=== PATIENT | male | born 1945 | race Caucasian/White ===

== ENCOUNTER → 2018-12-28 | Outpatient (CLI) | payer MEDICARE ==
--- NOTE | 2018-12-28 16:42 | XR ---
EXAMINATION TYPE: XR Hip Bilateral Complete DATE OF EXAM: 12/28/2018 COMPARISON: NONE HISTORY: 73-year-old male M25.551, complaining of bilateral hip pain TECHNIQUE: 2 views each side FINDINGS: On the right, there is end-stage loss of cartilage and joint space along the superolateral weightbear ing aspect with bone on bone articulation, subchondral sclerosis, and marginal spurring. Only mild marginal spurring seen on the left. No acute fracture, subluxation, or dislocation. Some oneill rgical clips in the pelvis. IMPRESSION: 1. End stage right hip OA. 2. Only mild degenerative spurring at the left hip.
== END | disposition home or self-care (01) ==
LOC: RADXRMAIN 15:09
PROVIDERS: ATTEND Internal Medicine Geriatric Medicine
DX: M16.0 Bilateral primary osteoarthritis of hip (principal)
CPT/HCPCS: 73521

== ENCOUNTER → 2019-01-11 | Outpatient (CLI) | payer MEDICARE ==
[2019-01-11 11:00] LABS: Basophils % (A) 0 %; Eosinophils # (A) 0.1 k/uL (0-0.7); Eosinophils % (A) 2 %; HCT 46.3 % (39.0-53.0); HGB 15.1 gm/dL (13.0-17.5); Lymphocytes # (A) 1.7 k/uL (1.0-4.8); Lymphocytes % (A) 30 %; MCH 29.7 pg (25.0-35.0); MCHC 32.6 g/dL (31.0-37.0); Mean Platelet Volume 7.1; Monocytes # (A) 0.4 k/uL (0-1.0); Monocytes % (A) 8 %; Neutrophils # (A) 3.3 k/uL (1.3-7.7); Neutrophils % (A) 58 %; Platelet Count 321 k/uL (150-450); RBC 5.09 m/uL (4.30-5.90); RDW 15.2 % (11.5-15.5); WBC 5.7 k/uL (3.8-10.6)
[2019-01-11 12:48] LABS: Appearance,Urine Clear (Clear); Bilirubin,Urine Negative (Negative); Blood,Urine Negative (Negative); Color,Urine Yellow; Glucose,Urine (UA) Negative (Negative); Ketones,Urine Negative (Negative); Leukocyte Esterase,Urine Negative (Negative); Nitrite,Urine Negative (Negative); PH, Urine 7.5 (5.0-8.0); Protein,Urine Negative (Negative); Specific Gravity,Urine 1.017 (1.001-1.035); Urobilinogen,Urine <2.0 mg/dL (<2.0)
[2019-01-11 13:52] LABS: Erythrocyte Sedimentation Rate 6 mm/hr (0-15)
[2019-01-11 17:23] LABS: C Reactive Protein <0.4 mg/dL (0.0-0.8); Thyroid Peroxidase Antibodies <28.0 U/mL (0.0-60.0)
== END | disposition home or self-care (01) ==
LOC: LABWHC1 09:47
PROVIDERS: ATTEND Allergy & Immunology
DX: K59.09 Other constipation (principal); L50.1 Idiopathic urticaria
CPT/HCPCS: 36415; 81003; 84443; 85025; 85652; 86140; 86376; 86800; 88184; 88185

== ENCOUNTER → 2019-01-12 | Outpatient (CLI) | payer MEDICARE | END | disposition home or self-care (01) | LOC: LABWHC1 14:11 | PROVIDERS: ATTEND Allergy & Immunology | DX: L50.8 Other urticaria (principal) | CPT/HCPCS: 36415; 86160; 86162 ==

== ENCOUNTER → 2020-02-03 | Outpatient (CLI) | payer MEDICARE ==
--- NOTE | 2020-02-03 22:11 | SFUN ---
SLEEP CENTER FOLLOW UP NOTE DATE OF SERVICE: 02/03/2020 This patient is a 74-year-old gentleman who has been followed in Sleep Center for treatment of obstructive sleep apnea-hypopnea syndrome. Patient successfully continues to use CPAP equipment every night, according to him. He sleeps well with the machine. [place] Sleepiness Scale today is 8. I checked his CPAP unit. Range of the pressure is 5 to 13. Average pressure is 10 cm of water. Usage, 30/30 nights and 25/30 nights for more than 4 hours with average usage 5.6 hours per night. Leak is 34 L/minute, which is slightly high. Apnea-hypopnea index is 6.1 with central apnea-hypopnea index 2.9. The patient is using a nasal Mirage FX mask. MEDICATIONS: Benadryl, montelukast, , Centrum Silver, multivitamins, calcium, Nature Made 600 mg in the morning. PHYSICAL EXAMINATION: GENERAL: A pleasant patient in no distress. VITAL SIGNS: BP 97/60, HR 78, RR 15, height 5 feet 6 inches, weight 174, BMI 27.9, temperature 98.3, oxygen saturation at room air 98%. HEENT: PERRLA, EOMI. Evaluation of oropharynx showed tongue protrudes midline. Low position of soft palate. NECK: Supple. No JVD. Thyroid is not palpable. LUNGS: Clear to percussion and to auscultation. Good air exchange. No wheezing or rhonchi. HEART: S1, S2 regular. No murmurs, gallops or rubs. ABDOMEN: Soft and nontender. Bowel sounds are present. No organomegaly. EXTREMITIES: No clubbing or cyanosis. PRINCIPAL TECHNICAL WRITER: Awake, alert, and oriented X3. Cranial nerves 2 to 7 intact. There is no fasciculation or atrophy. noted. No focal deficits observed. IMPRESSION: 1. Obstructive sleep apnea-hypopnea syndrome. Patient demonstrated good compliance with treatment, benefitting from treatment. 2. History of colon carcinoma, status post surgical treatment, radiation therapy and chemotherapy. 3. History of right knee arthritis. 4. History of right hip arthritis. 5. History of beginning of macular degeneration. PLAN: 1. Patient will continue to use PAP equipment every night for the whole night. 2. Sleep hygiene with regular time in bed for at least 7-1/2 to 8 hours. 3. Precautions related to driving. No driving if feeling sleepiness. 4. I will maintain all necessary prescription for PAP supplies including mask, tube, filters. 5. Watching weight. 6. No driving if feeling sleepiness. 7. Follow-up visit in 6 months or earlier if patient has any problems. Thank you very much for allowing me to participate in the management of your patient. Sincerely, Sang Gore MD, PhD, FAASM Diplomat of [place] Board [employer] Specialties [place] Board of Internal Medicine Real Estate Sales Associate of [facility] [place] MMODL / JACEN: [id number] /
== END | disposition home or self-care (01) ==
LOC: SLEEP 14:55
PROVIDERS: ATTEND Internal Medicine
DX: G47.33 Obstructive sleep apnea (adult) (pediatric) (principal); Z99.89 Dependence on other enabling machines and devices; Z85.030 Personal history of malignant carcinoid tumor of large intestine; Z92.3 Personal history of irradiation; Z92.21 Personal history of antineoplastic chemotherapy; Z87.39 Personal history of other diseases of the musculoskeletal system and connective tissue; Z79.899 Other long term (current) drug therapy

== ENCOUNTER → 2020-08-10 | Outpatient (CLI) | payer MEDICARE ==
--- NOTE | 2020-08-10 16:32 | SFUN ---
SLEEP CENTER FOLLOW UP NOTE DATE OF SERVICE: 08/10/2020 This is 75-year-old gentleman who has been followed in the sleep center for treatment of obstructive sleep apnea-hypopnea syndrome. The patient continues to use CPAP equipment every night for the whole night. No significant problems related to mask fitting, pressure or humidification. [place] Sleepiness Scale is 6, which is normal. I checked his CPAP unit. It is in automatic regimen with range of the pressure 5 to 13, average pressure 10.7. Usage is every night and /30 nights for more than 4 hours with average usage 5.7 hours per night. Leak is 30 L/minute, which is slightly high. Apnea- hypopnea index is borderline at 5.8, which includes central apnea-hypopnea index 2.9. MEDICATIONS: Montelukast, FiberCon, Xyzal, vitamins. PHYSICAL EXAMINATION: GENERAL: A pleasant patient in no distress. VITAL SIGNS: BP 101/60, HR 79, RR 12, height 5 feet 6-1/2 inches, weight 177.4, BMI 28.1, temperature 97.5, oxygen saturation at room air 98%. HEENT: PERRLA, EOMI. Evaluation of oropharynx showed tongue protrudes midline. NECK: Supple. No JVD. Thyroid is not palpable. LUNGS: Clear to percussion and to auscultation. Good air exchange. No wheezing or rhonchi. HEART: S1, S2 regular. No murmurs, gallops or rubs. ABDOMEN: Soft and nontender. Bowel sounds are present. No organomegaly appreciated. EXTREMITIES: No clubbing or cyanosis. CONTENT CREATION MANAGER: Awake, alert, and oriented X3. Cranial nerves 2 to 7 intact. There is no fasciculation or atrophy. noted. No focal deficits observed. IMPRESSION: 1. Obstructive sleep apnea-hypopnea syndrome. Patient demonstrated close to 100% compliance with treatment, benefitting from treatment. 2. History of colon carcinoma, status post surgical treatment, radiation therapy and chemotherapy. 3. History of right knee arthritis. 4. History of right hip arthritis. 5. History of macular degeneration. PLAN: 1. I believe you could continue to use PAP equipment with the same regimen. Patient developed a few central apneas, but the amount of central apneas is very minimal; 2.9 times per hour. 2. Patient will continue to use PAP equipment every night for the whole night. 3. Sleep hygiene with regular time in bed for at least 7-1/2 to 8 hours. 4. Precautions related to driving. No driving if feeling sleepiness. 5. I will maintain all necessary prescription for PAP supplies including mask, tube, filters. 6. Watching weight. 7. Follow-up visit in 6 months or earlier if patient has any problems. Thank you very much for allowing me to participate in the management of your patient. Sincerely, Sang Gore MD, PhD, FAASM Diplomat of [place] [employer] of [employer] Specialties [place] Board of Internal Medicine Control Analyst of [facility] [place] MMODL / IJN: [id number] /
== END ==
LOC: SLEEP 13:14
PROVIDERS: ATTEND Internal Medicine
DX: G47.33 Obstructive sleep apnea (adult) (pediatric) (principal); M17.11 Unilateral primary osteoarthritis, right knee; M16.11 Unilateral primary osteoarthritis, right hip; Z85.038 Personal history of other malignant neoplasm of large intestine; Z86.69 Personal history of other diseases of the nervous system and sense organs; Z79.899 Other long term (current) drug therapy

== ENCOUNTER → 2021-03-22 | Outpatient (CLI) | payer MEDICARE ==
--- NOTE | 2021-03-22 17:34 | SFUN ---
SLEEP CENTER FOLLOW UP NOTE DATE OF SERVICE: 03/22/2021 This 75-year-old gentleman has been followed in Sleep Center for treatment of obstructive sleep apnea-hypopnea syndrome. The patient continues to use his equipment every night and sleeps well. No complaints about sleep. No snoring. [place] Sleepiness Scale today is 8, which is normal. I checked his CPAP unit. Range of the pressure is 5 to 13, average pressure 9.9. Usage is 30/30 nights and 27/30 nights for more than 4 hours. Leak is slightly high at 36 L/minute. Apnea-hypopnea index is slightly increased at 5.5. The patient is using an AirFit P10 nasal pillow mask. He has slight irritation from the pillows on the nose. MEDICATIONS: 1. Montelukast. 2. Xyzal. 3. Benadryl. 4. Polyvitamins. 5. Calcium supplement. 6. Fiber therapy. PHYSICAL EXAMINATION: GENERAL: Pleasant patient in no distress. VITAL SIGNS: BP 104/68, HR 78, RR 15, height 5 feet 6 inches, weight 174, body mass index 28, temperature 98.3, oxygen saturation at room air 98%. HEENT: PERRLA, EOMI, evaluation of oropharynx showed tongue protrudes midline. NECK: Supple, no JVD. Thyroid is not palpable. LUNGS: Clear to percussion and to auscultation. Good air exchange. No wheezing or rhonchi. HEART: S1, S2 regular. No murmurs, gallops, or rubs. ABDOMEN: Soft and nontender. EXTREMITIES: No clubbing or cyanosis. STUD MASTER/MISTRESS: Awake, alert, and oriented X3. Cranial nerves 2 to 7 intact. There is no fasciculation or atrophy. noted. No focal deficits observed. IMPRESSION: 1. Obstructive sleep apnea-hypopnea syndrome. Patient demonstrated good compliance with treatment, benefitting from treatment. Some discomfort related to nasal pillow mask. The patient is using AirFit P10 pillows. Leak slightly increased. 2. History of colon carcinoma, status post surgical treatment, radiation therapy and chemotherapy. 3. History of right hip arthritis. 4. History of right knee arthritis. 5. History of macular degeneration. PLAN: 1. I increased regimen of pressure in his machine from 5-13 to 5-14 cm of water. 2. Patient may use AYR gel to the nostrils. 3. The patient may try a different size of nasal pillows. 4. Patient will continue to use PAP equipment every night for the whole night. 5. Sleep hygiene with regular time in bed for at least 7-1/2 to 8 hours. 6. Precautions related to driving. No driving if feeling sleepiness. 7. I will maintain all necessary prescription for PAP supplies including mask, tube, filters. 8. Watching weight. 9. Follow-up visit in 6 months or earlier if patient has any problems. Thank you very much for allowing me to participate in the management of your patient. Sincerely, Sang Gore MD, PhD, FAASM Diplomat of [place] Board of Medical Specialties Sleep Medicine Board of [place] Board of Internal Medicine Housekeeping Department Worker of [facility] [place] MMJO-ANN / JACEN: [id number] /
== END | disposition home or self-care (01) ==
LOC: SLEEP 09:55
PROVIDERS: ATTEND Internal Medicine
DX: G47.33 Obstructive sleep apnea (adult) (pediatric) (principal); Z85.038 Personal history of other malignant neoplasm of large intestine; C80.1 Malignant (primary) neoplasm, unspecified; Z92.3 Personal history of irradiation; Z92.21 Personal history of antineoplastic chemotherapy

== ENCOUNTER → 2021-09-19 | Outpatient (CLI) | payer MEDICARE ==
--- NOTE | 2021-09-19 12:41 | SFUN ---
SLEEP CENTER FOLLOW UP NOTE DATE OF SERVICE: 09/19/2021 This 76-year-old gentleman has been followed in Sleep Center for treatment of obstructive sleep apnea-hypopnea syndrome. The patient sleeps well, continues to use his CPAP equipment every night. During the previous visit, apnea-hypopnea index was slightly increased to 5.5. I slightly increased the pressure in his machine from the range of 5 to 13 up to 5 to 14. At present he said that he likes his nasal pillow mask. No problems with the equipment; getting his supplies on time. I checked his CPAP unit. Range of the pressure is 5 to 14, average pressure 10.6. Usage is 30/30 nights and usage 24/30 nights for more than 4 hours; average usage 5.1 hours. Leak is slightly increased to 30 L/minute. Apnea-hypopnea index is slightly increased to 7.2, which includes central apnea-hypopnea index of 4.4. [place] Sleepiness Scale today is 5, which is normal. MEDICATIONS: 1. Xyzal 5 mg 3 tablets every 2 days. 2. Montelukast 10 mg once a day. 3. Polyvitamin supplements. 4. Calcium supplement. PHYSICAL EXAMINATION: GENERAL: Pleasant patient in no distress. VITAL SIGNS: BP 115/68, HR 80, RR 14, weight 177.1 pounds, height 5 feet 6 inches, temperature 97.0, oxygen saturation at room air 97%. HEENT: PERRLA, EOMI, evaluation of oropharynx showed tongue protrudes midline. NECK: Supple, no JVD. Thyroid is not palpable. LUNGS: Clear to percussion and to auscultation. Good air exchange. No wheezing or rhonchi. HEART: S1, S2 regular. No murmurs, gallops, or rubs. ABDOMEN: Soft and nontender. Bowel sounds are present. No organomegaly appreciated. EXTREMITIES: No clubbing or cyanosis. STAMPING DIE MAKER BENCH: Awake, alert, and oriented X3. Cranial nerves 2 to 7 intact. There is no fasciculation or atrophy. noted. No focal deficits observed. IMPRESSION: 1. Obstructive and central sleep apnea-hypopnea syndrome. Patient demonstrated great compliance with treatment, benefitting from treatment. He sleeps well. Apnea- hypopnea index slightly increased to 7.2, including central events of 4.4 times per hour. 2. History of colon carcinoma, status post surgical, radiation and chemotherapy treatment. 3. History of right hip arthritis. 4. History of right knee arthritis. 5. History of macular degeneration. PLAN: 1. The patient sleeps well. For now we will continue to use the same therapy. If in the future any problems arise related to central apneas, we may consider BiPAP titration with ST mode. 2. Sleep hygiene with regular time in bed for at least 7-1/2 to 8 hours. 3. Precautions related to driving. No driving if feeling sleepiness. 4. I will maintain all necessary prescription for PAP supplies including mask, tube, filters. 5. Watching weight. 6. Follow-up visit in 6 months or earlier if patient has any problems. Thank you very much for allowing me to participate in the management of your patient. Sincerely, Sang Gore MD, PhD, FAASM Diplomat of [place] Board of Medical Specialties Sleep Medicine Board of [place] Board of Internal Medicine Operations Associate of [facility] [place] MMODL / IJN: [id number] /
== END | disposition home or self-care (01) ==
LOC: SLEEP 10:04
PROVIDERS: ATTEND Internal Medicine
DX: G47.33 Obstructive sleep apnea (adult) (pediatric) (principal); Z85.038 Personal history of other malignant neoplasm of large intestine; Z96.641 Presence of right artificial hip joint; Z86.69 Personal history of other diseases of the nervous system and sense organs

== ENCOUNTER → 2022-04-10 | Outpatient (CLI) | payer MEDICARE ==
--- NOTE | 2022-04-10 10:58 | P.PN ---
Subjective DATE: 04/10/2022 FOLLOW UP VISIT. Patient with obstructive sleep apnea hypopnea syndrome return to sleep center for follow-up visit. Information from previous visit have been reviewed. Patient is using PAP equipment every night for the whole night, getting PAP supplies in time. The patient does not have significant problems with the mask, PAP unit and humidification. [place] sleepiness scale is 6, which is normal. I checked PAP unit. Condition of air filter is good. PAP unit pressure 5-14, average 10.7 cm H2O. Usage is more then 90 % for more then 4 hours, average 5.6 hours per night. Leak is 28 l/m, which is in acceptable range. Apnea Hypopnea Index is 4.2, which is normal and showed improvement compared with the previous visit on total apnea hypopnea index was 7.2 included central apnea-hypopnea index 4.4. MEDICATIONS:1. Centrum Silver vitamins 2., Calcium supplement During physical exam: GENERAL: A pleasant patient without any distress. VITAL SIGNS: BP 113/73, HR 70, RR 16, weight 176, temperature 98.0, height 5 foot and 5-1/2 inches, body mass index 28.8, oxygen saturation at room air 97 % . HEENT: PERRLA, EOMI.low position of soft palate. NECK: Supple. No JVD. LUNGS: Clear to percussion and to auscultation. Good air exchange. No wheezing or rhonchi. HEART: S1, S2 regular. ABDOMEN: Soft and nontender.[] EXTREMITIES: No clubbing or cyanosis. REGIONAL CONSTRUCTION MANAGER: Awake, alert, and oriented x3. No focal deficit. Impressions: 1. Obstructive sleep apnea-hypopnea syndrome. Patient demonstrated great compliance with treatment, benefiting from treatment. Apnea-hypopnea index improved comparing to the previous visit down to normal 4.2 per hour, that i ncluded central apnea-hypopnea index 1.9. 2. History of colon carcinoma status post surgical treatment, radiation therapy and chemotherapy. 3. History of right hip arthritis. 4. History of right knee arthritis. 5. History of macular degeneration. Plan: 1. Continue using PAP equipment every night for the whole night. 2. To change air filter at least 1-2 times per month. 3. PAP unit should stay lower then position of the head. 4. Advised patient to remove all remaining water from humidifier canister daily and make it dry after each usage. Refill canister with fresh distilled water before each usage. 5. Sleep hygiene with regular time in bed for at least 8 hours. 6. Precautions related to driving. No driving if feel any sleepiness. 7. I will maintain prescription for PAP supplies including mask, tube, filters. 8. Follow up visit in 6 months or earlier if patient has any problems. 9. Watching weight. Thank you very much for allowing me to participate in the management of your patient. Sang Gore MD, PhD, FAASM. Diplomat of [place] Board of Sleep Medicine, Sleep Medicine Board by [place] Board of Internal Medicine License And Permit Specialist of [facility] [place]
== END | disposition home or self-care (01) ==
LOC: SLEEP 10:13
PROVIDERS: ATTEND Internal Medicine
DX: G47.33 Obstructive sleep apnea (adult) (pediatric) (principal); M16.11 Unilateral primary osteoarthritis, right hip; M17.11 Unilateral primary osteoarthritis, right knee; Z85.038 Personal history of other malignant neoplasm of large intestine; Z92.3 Personal history of irradiation
CPT/HCPCS: 99212

== ENCOUNTER → 2023-04-08 | Outpatient (CLI) | payer MEDICARE ==
--- NOTE | 2023-04-08 11:58 | BD ---
EXAMINATION TYPE: Axial Bone Density DATE OF EXAM: 04/08/2023 CLINICAL HISTORY: 77 years old Male. ICD-10 CODE: M81.0 AGE-RELATED OSTEOPOROSIS Height: 65.0 Weight: 168.2 FRAX RISK QUESTIONS: Alcohol (3 or more units per day): no Family History (Parent hip fracture): no Glucocorticoids (More than 3mos): no (Ex: prednisone, prednisolone, methylprednisolone, dexamethasone, and hydrocortisone). History of Fracture in Adulthood: no Secondary Osteoporosis: 1. Type 1 Diabetes: no 2. Hyperthyroidism: no 3. Menopause before 45: N/A 4. Malnutrition: no 5. Chronic liver disease: no Rheumatoid Arthritis: no Current Tobacco Use: no RISK FACTORS HISTORY OF: Surgery to Spine/Hip(right/left)/Wrist (right/left): right hip replaced When: 5 years ago Active: yes Diet low in dairy products/other sources of calcium: yes Lost more than 2 inches in height since high school: yes MEDICATIONS: Additional History: EXAM MEASUREMENTS: Bone mineral densitometry was performed using the [employer] System. Bone mineral density as measured about the Lumbar spine is: ----- L1-L4(G/cm2): 1.146 T Score Values are as follows: ----- L1: 1.2 ----- L2: -0.8 ----- L3: -0.7 ----- L4: -0.8 ----- L1-L4: -0.3 Z Score Values are as follows: ----- L1: 1.7 ----- L2: -0.4 ----- L3: -0.3 ----- L4: -0.5 ----- L1-L4: 0.1 Bone mineral density : baseline Bone mineral density about the L hip (g/cm2): 1.045 T Score values are as follows: -----L Neck-0.3 -----L Total: 0.3 Z Score values are as follows: -----L Neck: 0.9 -----L Total: 0.6 Bone mineral density : baseline FRAX%s: The graph provided illustrates a 5.4% chance for a major osteoporotic fx and a 1.2% chance fo r the hips probability for fx in 10 years time. IMPRESSION: Normal (Values between +1 and -1 indicate normal bone mass). Consider repeating this study in 5 year s or sooner if there is some new clinical indication. NOTE: T-SCORE=SD OF THE YOUNG ADULT MEAN.
== END | disposition home or self-care (01) ==
LOC: RADBDWWP 11:13
PROVIDERS: ATTEND Internal Medicine Geriatric Medicine
DX: M81.0 Age-related osteoporosis without current pathological fracture (principal)
CPT/HCPCS: 77080

== ENCOUNTER → 2023-04-16 | Outpatient (CLI) | payer MEDICARE ==
--- NOTE | 2023-04-16 12:24 | P.PN ---
Subjective DATE: 04/16/2023 FOLLOW UP VISIT. Patient with obstructive sleep apnea hypopnea syndrome return to sleep center for follow-up visit. Information from previous visit have been reviewed. Patient is using PAP equipment every night for the whole night, getting PAP supplies in time. The patient does not have significant problems with the mask, PAP unit and humidification. [place] sleepiness scale is 6, which is normal. I checked information from PAP unit. PAP unit pressure 5-14, average 10.7 cm H2O. Usage is 100 % for more then 4 hours, average 5.5 hours per night. Leak is 24 l/m, which is in acceptable range. Apnea Hypopnea Index is 5.0, which is normal. MEDICATIONS:1. Calcium supplement 2. Polyvitamin During physical exam: GENERAL: A pleasant patient without any distress. VITAL SIGNS: BP 111/67, HR 76, RR 16 , weight 171.8, temperature 98.3, oxygen saturation at room air 98 % . HEENT: PERRLA, EOMI.low position of soft palate, Mallapati 3 . NECK: Supple. No JVD. LUNGS: Clear to percussion and to auscultation. Good air exchange. No wheezing or rhonchi. HEART: S1, S2 regular. ABDOMEN: Soft and nontender.[] EXTREMITIES: No clubbing or cyanosis. ANIMAL CARE TAKER: Awake, alert, and oriented x3. No focal deficit. Impressions: 1. Obstructive sleep apnea-hypopnea syndrome. Patient demonstrated great compliance with treatment, benefiting from treatment. 2. History of colon cancer, status post surgical treatment, chemotherapy and radiation therapy. 3. History of right hip arthritis. 4. History of right knee arthritis. 5. History of myocardial degeneration. Plan: 1. Continue using PAP equipment every night for the whole night. 2. To change air filter at least 1-2 times per month. 3. PAP unit should stay lower then position of the head. 4. Advised patient to remove all remaining water from humidifier canister daily and make it dry after each usage. Refill canister with fresh distilled water before each usage. 5. Sleep hygiene with regular time in bed for at least 8 hours. 6. Precautions related to driving. No driving if feel any sleepiness. 7. I will maintain prescription for PAP supplies including mask, tube, filters. 8. Watching weight. 9. Follow up visit in 6 months or earlier if patient has any problems. Thank you very much for allowing me to participate in the management of your patient. Sang Gore MD, PhD, FAASM. Diplomat of [place] Board of Sleep Medicine, Sleep Medicine Board by [place] Board of Internal Medicine Structural Steel Worker Helper of [facility] [place]
== END ==
LOC: 3 N SLEEP 10:16
PROVIDERS: ATTEND Internal Medicine
DX: G47.33 Obstructive sleep apnea (adult) (pediatric) (principal); M16.11 Unilateral primary osteoarthritis, right hip; M17.11 Unilateral primary osteoarthritis, right knee; Z85.038 Personal history of other malignant neoplasm of large intestine; Z86.79 Personal history of other diseases of the circulatory system; Z99.89 Dependence on other enabling machines and devices; Z92.3 Personal history of irradiation
CPT/HCPCS: 99212

== ENCOUNTER → 2023-10-22 | Outpatient (CLI) | payer MEDICARE ==
--- NOTE | 2023-10-22 11:16 | P.PROGSL ---
Subjective DATE: 10/22/2023 FOLLOW UP VISIT. Patient with obstructive sleep apnea hypopnea syndrome return to sleep center for follow-up visit. Information from previous visit have been reviewed. Patient is using PAP equipment every night for the whole night, getting PAP supplies in time. PAP unit is noisy, more than 5-year-old . [place] sleepiness scale is 6, which is normal. I checked information from PAP unit. PAP unit pressure 5-14, average 11.1 cm H2O. Usage is 100% for more then 4 hours, average 4.9 hours per night. Leak is 22 l/m, which is in acceptable range. Apnea Hypopnea Index is 4.5, which is normal. MEDICATIONS: See below During physical exam: GENERAL: A pleasant patient without any distress. VITAL SIGNS: See below, weight 174 pounds, BMI 28.5. HEENT: PERRLA, EOMI.low position of soft palate, Mallapati 3 . NECK: Supple. No JVD. LUNGS: Clear to percussion and to auscultation. Good air exchange. No wheezing or rhonchi. HEART: S1, S2 regular. ABDOMEN: Soft and nontender.[] EXTREMITIES: No clubbing or cyanosis. BRIM POUNCER: Awake, alert, and oriented x3. No focal deficit. Impressions: 1. Obstructive sleep apnea-hypopnea syndrome. Patient demonstrated great compliance with treatment, benefiting from treatment. CPAP unit is old, noisy. 2. History of colon cancer. 3. History of right hip arthritis. 4. History of right knee arthritis. Plan: 1. Continue using PAP equipment every night for the whole night. Prescription to replace CPAP unit, because it is noisy and old. 2. To change air filter at least 1-2 times per month. 3. PAP unit should stay lower then position of the head. 4. Advised patient to remove all remaining water from humidifier canister daily and make it dry after each usage. Refill canister with fresh distilled water before each usage. 5. Sleep hygiene with regular time in bed for at least 8 hours. 6. Precautions related to driving. No driving if feel any sleepiness. 7. I will maintain prescription for PAP supplies including mask, tube, filters. 8. Follow up visit in 1-3 months after patient will get new CPAP unit or earlier if patient has any problems. 9. Watching weight. Thank you very much for allowing me to participate in the management of your patient. Sang Gore MD, PhD, FAASM. Diplomat of [place] Board of Sleep Medicine, Sleep Medicine Board by [place] Board of Internal Medicine Journeyman Millwright of [facility] [place] Objective - Vital Signs Vital Signs: Vital Signs Temp 98.2 F 10/22/23 10:58 Pulse 74 10/22/23 10:58 Resp 16 10/22/23 10:58 BP 118/73 10/22/23 10:58 Pulse Ox 97 10/22/23 10:58 FiO2 Intake & Output 10/21/23 10/22/23 10/22/23 18:59 06:59 18:59 Weight 78.925 kg Home Medications: Home Medications Medication Instructions Recorded Confirmed Type Calcium Carbonate/Vitamin D3 600 mg PO DAILY 10/22/23 10/22/23 History [Calcium 600 mg-Vit D3 10 mcg (400 Unit)] Citrull/Argin/Blaine Xt/Ora Hip 400 mg PO DAILY MDD 1000 10/22/23 10/22/23 History [Ristela Tablet] Multivit-Mins/Iron/Folic/Lycop See Rx Instructions .ROUTE .COMPLEX 10/22/23 10/22/23 History [Centrum Men's Tablet] Vit C/E/Zn/Coppr/Lutein/Zeaxan See Rx Instructions .ROUTE .COMPLEX 10/22/23 10/22/23 History [Preservision Areds 2 Chew Tab]
[2023-10-22 11:37] VITALS: BP 118/73; PULSE 74; RESP 16; TEMP 98.2
== END ==
LOC: 3 N SLEEP 10:37
PROVIDERS: ATTEND Internal Medicine
DX: G47.33 Obstructive sleep apnea (adult) (pediatric) (principal); Z85.038 Personal history of other malignant neoplasm of large intestine; Z87.39 Personal history of other diseases of the musculoskeletal system and connective tissue; Z99.89 Dependence on other enabling machines and devices
CPT/HCPCS: 99212

== ENCOUNTER → 2024-03-03 | Outpatient (CLI) | payer MEDICARE ==
[2024-03-03 16:19] VITALS: BP 110/71; PULSE 78; RESP 16; TEMP 98.1
--- NOTE | 2024-03-03 16:51 | P.PROGSL ---
Subjective DATE: 03/03/2024 FOLLOW UP VISIT. Patient with obstructive sleep apnea hypopnea syndrome return to sleep center for follow-up visit. Information from previous visit have been reviewed. This is first visit with new CPAP unit. Patient is using PAP equipment every night but sometimes not for the whole night, getting PAP supplies in time. The patient does not have significant problems with the mask, PAP unit and humidification. [place] sleepiness scale is 5, which is normal. I checked information from PAP unit. PAP unit pressure 5-15, average 8.6 cm H2O. Usage is 100% and about 60% for more then 4 hours, average 4.5 hours per night. Leak is 4.5 l/m, which is in acceptable range. Apnea Hypopnea Index is increased to 8.8 over the last months and to 6.7 for the last 3 months, which includes 6.1 centrals and 2.0 obstructive. MEDICATIONS have been reviewed, please see below. During physical exam: GENERAL: A pleasant patient without any distress. VITAL SIGNS: Please see below, weight is 175.4 lbs. HEENT: PERRLA, EOMI.low position of soft palate, Mallapati 3 . NECK: Supple. No JVD. LUNGS: Clear to percussion and to auscultation. Good air exchange. No wheezing or rhonchi. HEART: S1, S2 regular. ABDOMEN: Soft and nontender.[] EXTREMITIES: No clubbing or cyanosis. EARLY LEARNING TEACHER: Awake, alert, and oriented x3. No focal deficit. Impressions: 1. Complex sleep apnea-hypopnea syndrome. Patient demonstrated good compliance with treatment, benefiting from treatment. Apnea-hypopnea index slightly increased comparing with the previous visit mostly secondary to central apneas. 2. History of colon cancer. 3. History of right hip arthritis. 4. History of right knee arthritis. I changed regimen of CPAP unit to CPAP pressure 11 cm of water. Plan: 1. Continue using PAP equipment every night for the whole night. 2. Sleep hygiene with regular time in bed for at least 7.5-8 hours 3. PAP unit should stay lower then position of the head. 4. Advised patient to remove all remaining water from humidifier canister daily and make it dry after each usage. Refill canister with fresh distilled water before each usage. 5. Watching weight. 6. Precautions related to driving. No driving if feel any sleepiness. 7. I will maintain prescription for PAP supplies including mask, tube, filters. 8. Follow up visit in 2 months or earlier if patient has any problems. Thank you very much for allowing me to participate in the management of your patient. Sang Gore MD, PhD, FAASM. Diplomat of [place] [employer], Sleep Medicine Board by [employer] Derrick Boat Leverman of [facility] [place] Objective - Vital Signs Vital Signs: Vital Signs Temp 98.1 F 03/03/24 16:16 Pulse 78 03/03/24 16:16 Resp 16 03/03/24 16:16 BP 110/71 03/03/24 16:16 Pulse Ox 97 03/03/24 16:16 FiO2 Intake & Output 03/02/24 03/03/24 03/03/24 18:59 06:59 18:59 Weight 79.492 kg Home Medications: Home Medications Medication Instructions Recorded Confirmed Type Calcium Carbonate/Vitamin D3 600 mg PO DAILY 10/22/23 10/22/23 History [Calcium 600 mg-Vit D3 10 mcg (400 Unit)] Citrull/Argin/[place] Xt/Ora Hip 400 mg PO DAILY MDD 1000 10/22/23 10/22/23 History [Ristela Tablet] Multivit-Mins/Iron/Folic/Lycop See Rx Instructions .ROUTE .COMPLEX 10/22/23 10/22/23 History [Centrum Men's Tablet] Vit C/E/Zn/Coppr/Lutein/Zeaxan See Rx Instructions .ROUTE .COMPLEX 10/22/23 10/22/23 History [Preservision Areds 2 Chew Tab]
== END ==
LOC: 3 N SLEEP 15:19
PROVIDERS: ATTEND Internal Medicine
DX: G47.33 Obstructive sleep apnea (adult) (pediatric)
CPT/HCPCS: 99212

== ENCOUNTER → 2024-05-06 | Outpatient (CLI) | payer MEDICARE ==
[2024-05-06 10:58] VITALS: BP 120/73; PULSE 82; RESP 16; TEMP 97.8
--- NOTE | 2024-05-06 11:17 | P.PROGSL ---
Subjective DATE: 05/06/2024 FOLLOW UP VISIT. Patient with obstructive sleep apnea hypopnea syndrome return to sleep center for follow-up visit. Information from previous visit have been reviewed. Patient is using PAP equipment every night for the whole night, getting PAP supplies in time. The patient does not have significant problems with the mask, PAP unit and humidification. [place] sleepiness scale is 8, which is close to water. I checked information from PAP unit. PAP unit pressure 11 cm H2O. Usage is 100% for more then 4 hours, average 6 hours per night. Leak is 21.1 l/m, which is in acceptable range. Apnea Hypopnea Index is 7.0, which includes central apnea hypopnea index 4.9, obstructive 1.3 and showed improvements comparing with the previous visit when it was 8.8. At that time machine was not a traumatic regimen with a range of the pressure 5-15 and average pressure was 8.6 cm of water. MEDICATIONS have been reviewed, please see below. During physical exam: GENERAL: A pleasant patient without any distress. VITAL SIGNS: Please see below, weight is 179 lbs. HEENT: PERRLA, EOMI.low position of soft palate, Mallapati 3. NECK: Supple. No JVD. LUNGS: Clear to percussion and to auscultation. Good air exchange. No wheezing or rhonchi. HEART: S1, S2 regular. ABDOMEN: Soft and nontender.[] EXTREMITIES: No clubbing or cyanosis. NAPHTHALENE OPERATOR HELPER: Awake, alert, and oriented x3. No focal deficit. Impressions: 1. Complex sleep apnea-hypopnea syndrome. Patient demonstrated great compliance with treatment, benefiting from treatment. 2. History of colon cancer. 3. History of right hip arthritis. 4. History of right knee arthritis. I changed pressure of CPAP down to 10 cm of water. Plan: 1. Continue using PAP equipment every night for the whole night. 2. Sleep hygiene with regular time in bed for at least 7.5-8 hours 3. PAP unit should stay lower then position of the head. 4. Advised patient to remove all remaining water from humidifier canister daily and make it dry after each usage. Refill canister with fresh distilled water before each usage. 5. Watching weight. 6. Precautions related to driving. No driving if feel any sleepiness. 7. I will maintain prescription for PAP supplies including mask, tube, filters. 8. Follow up visit in 4 months or earlier if patient has any problems. Thank you very much for allowing me to participate in the management of your patient. Sang Gore MD, PhD, FAASM. Diplomat of [place] [employer], Sleep Medicine Board by [employer] Timber Supervisor of [facility] [place] Objective - Vital Signs Vital Signs: Vital Signs Temp 97.8 F 05/06/24 10:57 Pulse 82 05/06/24 10:57 Resp 16 05/06/24 10:57 BP 120/73 05/06/24 10:57 Pulse Ox 97 05/06/24 10:57 FiO2 Intake & Output 05/05/24 05/06/24 05/06/24 18:59 06:59 18:59 Weight 81.193 kg Home Medications: Home Medications Medication Instructions Recorded Confirmed Type Calcium Carbonate/Vitamin D3 600 mg PO DAILY 10/22/23 05/06/24 History [Calcium 600 mg-Vit D3 10 mcg (400 Unit)] Citrull/Argin/[place] Xt/Ora Hip 400 mg PO DAILY MDD 1000 10/22/23 05/06/24 History [Ristela Tablet] Multivit-Mins/Iron/Folic/Lycop See Rx Instructions .ROUTE .COMPLEX 10/22/23 05/06/24 History [Centrum Men's Tablet] Vit C/E/Zn/Coppr/Lutein/Zeaxan See Rx Instructions .ROUTE .COMPLEX 10/22/23 05/06/24 History [Preservision Areds 2 Chew Tab]
== END ==
LOC: 3 N SLEEP 10:31
PROVIDERS: ATTEND Internal Medicine
DX: G47.39 Other sleep apnea (principal); Z99.89 Dependence on other enabling machines and devices; Z87.39 Personal history of other diseases of the musculoskeletal system and connective tissue; Z85.038 Personal history of other malignant neoplasm of large intestine
CPT/HCPCS: 99212

== ENCOUNTER → 2024-08-19 | Day surgery (SDC) | payer MEDICARE ==
[2024-08-18 10:04] VITALS: BMI 28.2
[~2024-08-19] MED LIST: PROPOFOL 10 MG/ML 20 ML VIAL IV ONE
[2024-08-19 09:38] VITALS: RESP 16; TEMP 96.5
[2024-08-19] MEDS: LACTATED RINGERS 1,000 ML IV SCH (09:45)
--- NOTE | 2024-08-19 10:26 | P.PCN ---
Date of Procedure: 08/19/24 Preoperative Diagnosis: History of colon cancer Postoperative Diagnosis: Diverticulosis Patent anastomosis Procedure(s) Performed: Colonoscopy Anesthesia: MAC Surgeon: Brice Wisdom Pathology: none sent Condition: stable Disposition: same day Indications for Procedure: 79-year-old male with history of colon cancer and previous colon resection status post chemo and radiation presents today for colonoscopy. No blood in his stool. No difficulty with bowel function. Risks, benefits and alternatives were provided to the patient. All questions answered Operative Findings: Normal-appearing colon with diverticulosis, patent anastomosis from previous colon resection Description of Procedure: The patient was brought to the endoscopy suite and placed in left lateral decubitus position and adequate sedation was achieved using conscious sedation. Digital rectal exam was performed and mild internal hemorrhoids were palpated. An endoscope was then placed in the rectum and advanced to the cecum as identified by landmarks including the appendiceal orifice and the ileocecal valve. The prep was good. The colonoscope was then slowly withdrawn, examining for any mucosal abnormalities. The remaining colon was visualized adequately. Anastomosis was noted to be patent. No polyps noted. No neoplastic lesions noted. Mild amount of diverticulosis. Hemostasis was maintained. Retroflexion was performed in the rectum and internal hemorrhoid. Excess air was removed, the colonoscope withdrawn and the procedure terminated. The patient was then transferred to the recovery unit in stable condition. Repeat colonoscopy should be performed in 5 years unless symptomatic.
[2024-08-19 10:49] VITALS: BP 137/74; PULSE 71
== END | disposition home or self-care (01) ==
LOC: ORWHC2ENDO 08:57
PROVIDERS: ATTEND Surgery
DX: Z12.11 Encounter for screening for malignant neoplasm of colon (principal); K57.30 Diverticulosis of large intestine without perforation or abscess without bleeding; G47.33 Obstructive sleep apnea (adult) (pediatric); L40.9 Psoriasis, unspecified; Z85.038 Personal history of other malignant neoplasm of large intestine; Z90.49 Acquired absence of other specified parts of digestive tract; Z99.89 Dependence on other enabling machines and devices; Z79.899 Other long term (current) drug therapy; Z92.3 Personal history of irradiation; Z88.8 Allergy status to other drugs, medicaments and biological substances; Z98.0 Intestinal bypass and anastomosis status
CPT/HCPCS: J2704; G0105; 45378

== ENCOUNTER → 2024-09-15 | Outpatient (CLI) | payer MEDICARE ==
[2024-09-15 11:38] VITALS: BP 113/71; PULSE 74; RESP 16; TEMP 98.1
--- NOTE | 2024-09-15 12:09 | P.PROGSL ---
Subjective DATE: 09/15/2024 FOLLOW UP VISIT. Patient with obstructive sleep apnea hypopnea syndrome return to sleep center for follow-up visit. Information from previous visit have been reviewed. Patient is using PAP equipment every night for the whole night, getting PAP supplies in time. The patient does not have significant problems with the mask, PAP unit and humidification. [place] sleepiness scale is 6, which is normal. I checked information from PAP unit. PAP unit pressure 10 cm H2O. Usage is 100% for more then 4 hours, average 5.6 hours per night. Leak is 11 l/m, which is in acceptable range. Apnea Hypopnea Index is 8.0, which include 1.5 obstructive and 5.7 centrals. MEDICATIONS have been reviewed, please see below. During physical exam: GENERAL: A pleasant patient without any distress. VITAL SIGNS: Please see below, weight is 178.2 lbs. HEENT: PERRLA, EOMI.low position of soft palate, Mallapati 3. NECK: Supple. No JVD. LUNGS: Clear to percussion and to auscultation. Good air exchange. No wheezing or rhonchi. HEART: S1, S2 regular. ABDOMEN: Soft and nontender.[] EXTREMITIES: No clubbing or cyanosis. MOBILE DEVELOPMENT MANAGER: Awake, alert, and oriented x3. No focal deficit. Impressions: 1. Complex sleep apnea-hypopnea syndrome. Patient demonstrated great compliance with treatment, benefiting from treatment. Reading from the machine still showed some central apneas. 2. History of colon cancer. 3. History of right hip arthritis. 4. History of right knee arthritis. I changed pressure in CPAP unit down to 9 cm of water. Plan: 1. Continue using PAP equipment every night for the whole night. 2. Sleep hygiene with regular time in bed for at least 7.5-8 hours 3. PAP unit should stay lower then position of the head. 4. Advised patient to remove all remaining water from humidifier canister daily and make it dry after each usage. Refill canister with fresh distilled water before each usage. 5. Watching weight. 6. Precautions related to driving. No driving if feel any sleepiness. 7. I will maintain prescription for PAP supplies including mask, tube, filters. 8. Follow up visit in 3 months or earlier if patient has any problems. Thank you very much for allowing me to participate in the management of your patient. Sang Gore MD, PhD, FAASM. Diplomat of [place] [employer] Medicine, Sleep Medicine Board by [employer] Biomass Facilitator of [facility] [place] Objective - Vital Signs Vital Signs: Vital Signs Temp 98.1 F 09/15/24 11:36 Pulse 74 09/15/24 11:36 Resp 16 09/15/24 11:36 BP 113/71 09/15/24 11:36 Pulse Ox 96 09/15/24 11:36 FiO2 Intake & Output 09/14/24 09/15/24 09/15/24 18:59 06:59 18:59 Weight 80.796 kg Home Medications: Home Medications Medication Instructions Recorded Confirmed Type Calcium Carbonate/Vitamin D3 600 mg PO DAILY 10/22/23 08/19/24 History [Calcium 600 mg-Vit D3 10 mcg (400 Unit)] Vit C/E/Zn/Coppr/Lutein/Zeaxan 1 tab PO BID 10/22/23 08/19/24 History [Preservision Areds 2 Chew Tab] Calcium Carbonate [Calcium] 600 mg PO DAILY 08/18/24 08/19/24 History Citrucel Tab 2 tab PO DAILY 08/18/24 08/19/24 History Clobetasol Propionate [Temovate 1 applic TOPICAL BID 08/18/24 08/19/24 History 0.05% Cream] Ketoconazole [Ketoconazole 2%] 1 applic TOPICAL BID 08/18/24 08/19/24 History Multivit-Minerals/FA/Lycopene 1 each PO DAILY 08/18/24 08/19/24 History [One-A-Day Men's 50 Plus Tablet] Sodium Chloride 5% Ophth Oint 1 applic BOTH EYES BID 08/18/24 08/19/24 History [Christopher 128] Triamcinolone 0.025% Cream 1 applic TOPICAL BID 08/18/24 08/19/24 History [Kenalog 0.025% Cream] Triamcinolone Acetonide 1 applic TOPICAL BID 08/18/24 08/19/24 History [Triamcinolone Acetonide 0.1% Lotion]
== END ==
LOC: 3 N SLEEP 11:04
PROVIDERS: ATTEND Internal Medicine
DX: G47.33 Obstructive sleep apnea (adult) (pediatric) (principal); Z85.038 Personal history of other malignant neoplasm of large intestine; Z87.39 Personal history of other diseases of the musculoskeletal system and connective tissue; Z99.89 Dependence on other enabling machines and devices; Z91.048 Other nonmedicinal substance allergy status
CPT/HCPCS: 99212

== ENCOUNTER → 2024-11-05 | Outpatient (CLI) | payer MEDICARE ==
--- NOTE | 2024-11-07 22:45 | PE ---
EXAMINATION TYPE: PET CT fusion skull to thigh DATE OF EXAM: 11/05/2024 COMPARISON: NONE HISTORY: T-cell lymphoma per order. Colon cancer diagnosed in January 2020 completed chemotherapy October 2020 per patient. TECHNIQUE: Following the intravenous administration of 9.38 mCi of F-18 FDG, whole body images are p erformed from the top of skull to the bottom of the. Images are reviewed on the computer in the augusto nal, axial, and sagittal planes. Reconstructed rotating images are created on independent workstatio n and reviewed on the computer. A localization and attenuation correction CT is performed in conjun ction with the PET scan. Blood glucose level equals 100 SCAN: Subsequent Scan FINDINGS: Mean SUV mediastinum: 1.4 Mean SUV liver: 3.07 HEAD AND NECK: No areas of abnormal suspicious hypermetabolic uptake. CHEST, MEDIASTINUM, AND HILAR REGION: No areas of abnormal suspicious hypermetabolic uptake. ABDOMEN AND PELVIS: Normal excretion. No areas of suspicious abnormal uptake. Lower extremities: No areas of abnormal suspicious hypermetabolic uptake. OSSEOUS STRUCTURES: No areas of abnormal metabolic uptake OTHER CT: Bilateral aphakia. Mild calcified plaque bilateral carotid bulb level. Moderate coronary ca lcification. Debris filled slightly dilated esophagus raises concern for underlying achalasia, correl ate clinically. Simple appearing 4.7 cm thin-walled cyst upper pole right kidney does not clear follow-up. Surgical c marcia sigmoid colon in the pelvis is present. Metallic hardware from right hip arthroplasty causes str eak artifact limiting evaluation of pelvic structures. IMPRESSION: No suspicious hypermetabolic uptake to suggest active malignancy. [facility], , 11/07/2024 10:43 PM
== END | disposition home or self-care (01) ==
LOC: RADPETMAIN 14:00
PROVIDERS: ATTEND Internal Medicine Hematology & Oncology
DX: C84.A0 Cutaneous T-cell lymphoma, unspecified, unspecified site (principal); C84.08 Mycosis fungoides, lymph nodes of multiple sites
CPT/HCPCS: 78815; A9552

== ENCOUNTER → 2024-12-22 | Outpatient (CLI) | payer MEDICARE ==
[2024-12-22 11:52] VITALS: BP 130/79; PULSE 72; RESP 16; TEMP 97.8
--- NOTE | 2024-12-22 12:14 | P.PROGSL ---
Subjective DATE: 12/22/2024 FOLLOW UP VISIT. Patient with obstructive sleep apnea hypopnea syndrome return to sleep center for follow-up visit. Information from previous visit have been reviewed. Patient is using PAP equipment every night for the whole night, getting PAP supplies in time. The patient does not have significant problems with the mask, PAP unit and humidification. [place] sleepiness scale is slightly increased to 12. I checked information from PAP unit. PAP unit pressure 9 cm H2O. Usage is 100% for more then 4 hours, average 7.2 hours per night. Leak is 12 l/m, which is in acceptable range. Apnea Hypopnea Index is 6.9, which include 4.1 central events. MEDICATIONS have been reviewed, please see below. During physical exam: GENERAL: A pleasant patient without any distress. VITAL SIGNS: Please see below, weight is 175 lbs. HEENT: PERRLA, EOMI.low position of soft palate, Mallapati 3. NECK: Supple. No JVD. LUNGS: Clear to percussion and to auscultation. Good air exchange. No wheezing or rhonchi. HEART: S1, S2 regular. ABDOMEN: Soft and nontender.[] EXTREMITIES: No clubbing or cyanosis. SHOWROOM SALESPERSON: Awake, alert, and oriented x3. No focal deficit. Impressions: 1. Complex sleep apnea-hypopnea syndrome. Patient demonstrated great compliance with treatment, benefiting from treatment. 2. History of colon cancer. 3. History of right hip arthritis. 4. History of right knee arthritis. I changed the regimen of PAP unit to AutoPap with a range of the pressure 5 to 12 cm of water. Plan: 1. Continue using PAP equipment every night for the whole night. 2. Sleep hygiene with regular time in bed for at least 7.5-8 hours 3. PAP unit should stay lower then position of the head. 4. Advised patient to remove all remaining water from humidifier canister daily and make it dry after each usage. Refill canister with fresh distilled water before each usage. 5. Watching weight. 6. Precautions related to driving. No driving if feel any sleepiness. 7. I will maintain prescription for PAP supplies including mask, tube, filters. 8. Follow up visit in 6 months or earlier if patient has any problems. Thank you very much for allowing me to participate in the management of your patient. Sang Gore MD, PhD, FAASM. Diplomat of [place] [employer], Sleep Medicine Board by [place] Central Supply Technician Supervisor of [facility] [place] Objective - Vital Signs Vital Signs: Vital Signs Temp 97.8 F 12/22/24 11:51 Pulse 72 12/22/24 11:51 Resp 16 12/22/24 11:51 BP 130/79 12/22/24 11:51 Pulse Ox 98 12/22/24 11:51 FiO2 Home Medications: Home Medications Medication Instructions Recorded Confirmed Type Calcium Carbonate/Vitamin D3 600 mg PO DAILY 10/22/23 08/19/24 History [Calcium 600 mg-Vit D3 10 mcg (400 Unit)] Vit C/E/Zn/Coppr/Lutein/Zeaxan 1 tab PO BID 10/22/23 08/19/24 History [Preservision Areds 2 Chew Tab] Calcium Carbonate [Calcium] 600 mg PO DAILY 08/18/24 08/19/24 History Citrucel Tab 2 tab PO DAILY 08/18/24 08/19/24 History Clobetasol Propionate [Temovate 1 applic TOPICAL BID 08/18/24 08/19/24 History 0.05% Cream] Ketoconazole [Ketoconazole 2%] 1 applic TOPICAL BID 08/18/24 08/19/24 History Multivit-Minerals/FA/Lycopene 1 each PO DAILY 08/18/24 08/19/24 History [One-A-Day Men's 50 Plus Tablet] Sodium Chloride 5% Ophth Oint 1 applic BOTH EYES BID 08/18/24 08/19/24 History [Christopher 128] Triamcinolone 0.025% Cream 1 applic TOPICAL BID 08/18/24 08/19/24 History [Kenalog 0.025% Cream] Triamcinolone Acetonide 1 applic TOPICAL BID 08/18/24 08/19/24 History [Triamcinolone Acetonide 0.1% Lotion]
== END ==
LOC: 3 N SLEEP 11:26
PROVIDERS: ATTEND Internal Medicine
DX: G47.33 Obstructive sleep apnea (adult) (pediatric) (principal); Z85.038 Personal history of other malignant neoplasm of large intestine; Z87.39 Personal history of other diseases of the musculoskeletal system and connective tissue; Z99.89 Dependence on other enabling machines and devices; Z91.048 Other nonmedicinal substance allergy status
CPT/HCPCS: 99212